=== PATIENT | female | born 1955 | race Asian ===

== ENCOUNTER 2019-04-14 12:59 | Emergency (ER) | payer BC ==
[~2019-04-14] VITALS: Ht 165.1 cm; Wt 91.2 kg
[2019-04-14 13:07] VITALS: BP 112/69
--- NOTE | 2019-04-14 13:11 | NUR ---
PT AMBULATED TO ER BED 06
--- NOTE | 2019-04-14 13:15 | NUR ---
PT C/O DULL LEFT SIDE RIB PAIN AND SOB. PT REPORTS HEARING A POP YESTERDAY WHILE GETTING UP FROM SITTING ON THE GROUND. O2 SAT 99% RA, NO DISTRESS NOTED. DENIES N/V/D; SKIN IS PINK/WARM/DRY; AAOX4 WITH EVEN AND STEADY GAIT; HR EVEN AND REGULAR; PT DENIES ANY FEVER, CP, OR COUGH AT THIS TIME; PATIENT STATES PAIN OF 5/10 AT THIS TIME; VSS; PATIENT POSITIONED FOR COMFORT; HOB ELEVATED; BEDRAILS UP X1; BED DOWN. ER MD MADE AWARE OF PT STATUS.
--- NOTE | 2019-04-14 15:33 | NUR ---
Patient discharged with v/s stable. Written and verbal after care instructions given and explained. Patient verbalized understanding. Ambulatory with steady gait. All questions addressed prior to discharge. Advised to follow up with PMD.
[2019-04-14 15:34] VITALS: BP 123/63
== END 2019-04-14 15:33 | disposition home or self-care (01) ==
LOC: MED 12:59
DX: S29.011A Strain of muscle and tendon of front wall of thorax, initial encounter (principal); X50.1XXA Overexertion from prolonged static or awkward postures, initial encounter; Y93.89 Activity, other specified; Y92.89 Other specified places as the place of occurrence of the external cause; Y99.8 Other external cause status
CPT/HCPCS: 71046; 99283